=== PATIENT | male | born 1970 | race Caucasian/White ===

== ENCOUNTER 2018-03-29 11:19 | Emergency (ER) ==
[2018-03-29 11:27] VITALS: BP 132/88; TEMP 98.2; BMI 25.0
[2018-03-29] MEDS: TORADOL IM STA ×2 (11:52→12:49)
--- NOTE | 2018-03-29 12:25 | DI ---
EXAM: RIGHT KNEE. HISTORY: Knee pain. FINDINGS: Right knee four view. No comparison. 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 The joint compartments proper are within normal limits. There is no joint effusion or acute fracture. General bone density and soft tissues are wi thin normal limits. 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 Otherwise within normal limits radiographically .
--- NOTE | 2018-03-29 12:45 | CT ---
EXAM: CT lumbar spine without contrast HISTORY: Fall and unable to lay on back, pain COMPARISON: None TECHNIQUE: CT old lumbar spine performed without intravenous contrast. Coronal and sagittal reforma tted images obtained. FINDINGS: For the purposes of this examination, there will be considered five lumbar vertebral amanda s with partial sacralization of L5 and hypoplastic T12 ribs. Vertebral bodies normal height. No fra cture. No subluxation. Small multilevel marginal osteophytes. Intervertebral disc spaces maintaine d. Posterior disc osteophyte complex and facet arthrosis at L3-L4 and L4-L5 cause mild bilateral kimberly ral foraminal narrowing. Central canal grossly patent. No paravertebral soft tissue abnormality. A therosclerosis. . IMPRESSION: 1. No fracture or subluxation. 2. Mild chronic discogenic degenerative disease and facet arthrosis.
--- NOTE | 2018-03-29 12:49 | ED.PDOC ---
General ED Provider: Dr. GNUJAN CAO Chief Complaint: Knee Pain/Injury Stated Complaint: fall right knee pain and low back pain denied neck pain Time Seen by Physician: 11:20 (sustained a fall 1 hr ago denied neck pain ) Mode of Arrival: Wheelchair Information Source: Patient Exam Limitations: No limitations Referred to ED by: Other (pt was examined with napoleon in the room at all times denied other injury/pain) Nursing and Triage Documentation Reviewed and Agree: Yes Does patient meet sepsis criteria?: No If yes, has appropriate treatment been initiated?: No System Inflammatory Response Syndrome: Not Applicable (no neck pain ) Sepsis Protocol: For patient's 13 years and over: Temp is 96.8 and below OR 101 and greater Pulse >90 BPM Resp >20/minute Acutely Altered Mental Status Are patient's symptoms suggestive of a new infection, such as: -Pneumonia -Skin, Soft Tissue -Endocarditis -UTI -Bone, Joint Infection -Implantable Device -Acute Abdominal Infection -Wound Infection -Meningitis -Blood Stream Catheter Infection -Unknown Trauma/Injury Complaint Exam - Trauma Complaint/Exam Location of Pain or Injury: Reports: Back, RLE (knee) Mechanism of Injury: Reports: Fall Onset/Duration: 1 hr ago Symptoms Are: Still present Timing of Treatment: Immediate Initial Severity: Mild Current Severity: Mild Character: Reports: Aching Aggravating: Reports: Movement Alleviating: Reports: Rest Associated Signs and Symptoms: Denies: LOC, Confusion, Memory loss, Lethargy, Vomiting, Bleeding, Bruising, Swelling, Extremity disuse, Painful respiration, Hoarseness, Dysphagia, Hemoptysis, Significant blood loss Penetrating Injury Risk Factors: Reports: None Nexus Low Risk Criteria: No post-midline CS tender, No evidence of intoxicat., No Altered LOC, No focal neuro deficit, No distracting injuries Immobilization Removed Post Exam: No Glascow Coma Scale (see protocol): 15 Trauma Findings: Absent: [place] eyes, Hemotympanum, Nasal deformity, Dental tenderness, Dental injury, Dental malocclusion, Neck tenderness, Neck spasm, SubQ Air, Crepitus, Airway obstructed, Trachea displaced, Labored respirations, Decreased breath sounds, Muffled heart sounds, Weak pulses, Absent pulses, Abdominal distention, Pelvic tenderness, Pelvic instability Skin Findings: Present: Normal findings Differential Diagnoses: Abrasion, Fracture, Sprain, Strain Review of Systems - Review Of Systems Constitutional: Reports: No symptoms Eyes: Reports: No symptoms Ears, Nose, Mouth, Throat: Reports: No symptoms Respiratory: Reports: No symptoms Cardiac: Reports: No symptoms GI: Reports: No symptoms : Reports: No symptoms Musculoskeletal: Reports: Back pain, Joint pain (right knee) Skin: Reports: No symptoms Neurological: Reports: No symptoms Endocrine: Reports: No symptoms Hematologic/Lymphatic: Reports: No symptoms All Other Systems: Reviewed and Negative Past Medical History - Past Medical History Previously Healthy: Yes Endocrine: Reports: None Cardiovascular: Reports: None Respiratory: Reports: None Hematological: Reports: None Gastrointestinal: Reports: None Genitourinary: Reports: None Neuro/Psych: Reports: None Musculoskeletal: Reports: None Cancer: Reports: None - Surgical History General Surgical History: Reports: None - Family History Family History: Reports: None - Social History Smoking Status: Current every day smoker, Heavy tobacco smoker Hx Substance Use: No Alcohol Screening: None Physical Exam - Physical Exam Appearance: Well-appearing, No pain distress, Well-nourished Eyes: MICHELE, EOMI, Conjunctiva clear ENT: Ears normal, Nose normal, Oropharynx normal Respiratory: Airway patent, Breath sounds clear, Breath sounds equal, Respirations nonlabored Cardiovascular: RRR, Pulses normal, No rub, No murmur GI/: Soft, Nontender, No masses, Bowel sounds normal, No Organomegaly Musculoskeletal: Normal strength, ROM intact, No edema, No calf tenderness Skin: Warm, Dry, Normal color Neurological: Sensation intact, Motor intact, Reflexes intact, Cranial nerves intact, Alert, Oriented Psychiatric: Affect appropriate, Mood appropriate Interpretation - Radiology Interpretation Radiology Interpretation By: Radiologist Radiology Results: No acute changes Critical Care Note - Critical Care Note Total Time (mins): 0 Course - Course Orders, Labs, Meds: Orders Category Date Time Status Ketorolac Tromethamine [Toradol] MEDS 03/29/18 11:46 Discontinued 60 mg IM ONCE STA CT LUMBAR SPINE W/O CONTRAST Stat RADS 03/29/18 11:46 Completed KNEE, RIGHT 4 VIEWS Stat RADS 03/29/18 11:46 Completed Medications Discontinued Medications Generic Name Dose Route Start Last Admin Trade Name Freq PRN Reason Stop Dose Admin Ketorolac Tromethamine 60 mg 03/29/18 11:46 03/29/18 11:52 Toradol IM 03/29/18 11:47 Not Given ONCE STA Vital Signs: Temp Pulse Resp BP Pulse Ox 03/29/18 11:20 98.2 F 79 16 132/88 97 Departure - Departure Time of Disposition: 12:50 Disposition: HOME SELF-CARE Discharge Problem: Knee pain, Injury of knee, Lumbar back pain Instructions: Acute Low Back Pain (ED) Condition: Good Pt referred to PMD for follow-up: Yes IPMP verified?: No Additional Instructions: Please call your Family Physician as soon as possible to schedule a follow-up appointment. Prescriptions: Hydrocodone/Acetaminophen [[place] 10-325 Tablet] 1 each PO Q8HR #4 tablet Allergies/Adverse Reactions: Allergies No Known Allergies Allergy (Unverified 03/29/18 11:28) Home Medications: Ambulatory Orders Hydrocodone/Acetaminophen [[place] 10-325 Tablet] 1 each PO Q8HR #4 tablet
== END 2018-03-29 13:15 | disposition home or self-care (01) ==
LOC: EDBD 11:19 → ED 11:19
DX: M25.561 Pain in right knee (principal); M54.5 Low back pain; W19.XXXA Unspecified fall, initial encounter; F17.210 Nicotine dependence, cigarettes, uncomplicated
CPT/HCPCS: 96372; 99283

== ENCOUNTER 2019-01-25 11:56 | Emergency (ER) ==
[2019-01-25 12:08] VITALS: BP 163/97; TEMP 98.7; BMI 25.9
--- NOTE | 2019-01-25 13:37 | CT ---
EXAM: CT of the cervical spine without contrast History: Neck trauma. Technique: Multiplanar CT images through the cervical spine were obtained without the administration of IV contrast Findings: The visualized upper lungs are free of consolidation. The visualized airway remains paten t. No acute fracture or subluxation of the cervical spine. Reversal of the normal cervical lordosis. N o prevertebral soft tissue swelling. Predental space is not widened. Bony spinal canal is not compr omised. Disc space heights are preserved. Impression: No acute osseous abnormality of the cervical spine.
--- NOTE | 2019-01-25 13:39 | CT ---
EXAM: CT of the chest without contrast History: Chest trauma. Technique: Multiplanar CT images through the thorax were obtained without the administration of IV c ontrast Findings: Heart size is normal. No pericardial effusion. Coronary calcifications. No thoracic aor tic aneurysm. No pathologically enlarged thoracic lymph nodes. No consolidation. No pleural fluid and no pneumothorax. No suspicious lung masses or lung nodules. Within the visualized upper abdomen, status post cholecystectomy. Small hypodensity within the right kidney is probably a cyst. No acute osseous abnormalities. Impression: 1. No acute intrathoracic process. 2. Coronary artery disease
--- NOTE | 2019-01-25 13:40 | CT ---
EXAM: CT of the right shoulder without contrast History: Right shoulder trauma. Technique: Multiplanar CT images through the right shoulder were obtained without the administration of IV contrast Findings: No acute fracture or dislocation. Moderate narrowing of the right AC joint and mild narro wing of the right glenohumeral joint with small osteophytes. Impression: No acute fracture
--- NOTE | 2019-01-25 13:42 | CT ---
EXAM: CT thoracic spine without contrast HISTORY: Fall COMPARISON: None TECHNIQUE: CT thoracic spine performed without intravenous contrast. Coronal and sagittal reformatt ed images obtained. FINDINGS: Vertebral bodies normal height. No fracture. No subluxation. Mild multilevel chronic di scogenic degenerative disease with intervertebral disc space narrowing, marginal osteophyte formation . Central canal grossly patent. Please refer to separate report CT chest regarding findings in the chest. IMPRESSION: 1. No fracture or subluxation thoracic spine. 2. Mild chronic discogenic degenerative disease.
--- NOTE | 2019-01-25 14:09 | ED.PDOC ---
General ED Provider: Dr. GUNJAN CAO Chief Complaint: Extremity Pain/Injury Stated Complaint: RIGHT SHOULDER AND UPPER EXT NUMBNESS AFTER A FALL C/O SHOULDER PAIN RIGHT Time Seen by Physician: 12:00 (SEEN WITH BRIAN) Mode of Arrival: Walk-In Information Source: Patient Exam Limitations: No limitations Nursing and Triage Documentation Reviewed and Agree: Yes Does patient meet sepsis criteria?: No System Inflammatory Response Syndrome: Not Applicable Sepsis Protocol: For patient's 13 years and over: Temp is 96.8 and below OR 101 and greater Pulse >90 BPM Resp >20/minute Acutely Altered Mental Status Are patient's symptoms suggestive of a new infection, such as: -Pneumonia -Skin, Soft Tissue -Endocarditis -UTI -Bone, Joint Infection -Implantable Device -Acute Abdominal Infection -Wound Infection -Meningitis -Blood Stream Catheter Infection -Unknown Trauma/Injury Complaint Exam - Trauma Complaint/Exam Location of Pain or Injury: Reports: Neck, RUE, Other (SHOULDER RIGHT) Mechanism of Injury: Reports: Fall Onset/Duration: 2 HOURS AGO Symptoms Are: Still present Initial Severity: Moderate Current Severity: Mild Character: Reports: Aching (NUMBNESS RIGHT UPPER EXT) Aggravating: Reports: Movement (OF THE SHOULDER AND ARM) Alleviating: Reports: Rest Associated Signs and Symptoms: Denies: LOC, Confusion, Memory loss, Lethargy, Vomiting, Bleeding, Bruising, Swelling, Extremity disuse, Painful respiration, Hoarseness, Dysphagia, Hemoptysis, Significant blood loss Related History: Reports: Similar episode Penetrating Injury Risk Factors: Reports: None Related Surgical History: Reports: None Nexus Low Risk Criteria: No post-midline CS tender, No evidence of intoxicat., No Altered LOC, No focal neuro deficit Immobilization Removed Post Exam: No Glascow Coma Scale (see protocol): 15 Compartment Syndrome Risk Factors: Present: Pain, Paresthesias Review of Systems - Review Of Systems Constitutional: Reports: No symptoms Eyes: Reports: No symptoms Ears, Nose, Mouth, Throat: Reports: No symptoms Respiratory: Reports: No symptoms Cardiac: Reports: No symptoms GI: Reports: No symptoms : Reports: No symptoms Musculoskeletal: Reports: Joint pain (RIGHT SHOULDER ) Skin: Reports: No symptoms Neurological: Reports: No symptoms Endocrine: Reports: No symptoms Hematologic/Lymphatic: Reports: No symptoms All Other Systems: Reviewed and Negative Past Medical History - Past Medical History Previously Healthy: Yes Endocrine: Reports: None Cardiovascular: Reports: None Respiratory: Reports: None Hematological: Reports: None Gastrointestinal: Reports: None Genitourinary: Reports: None Neuro/Psych: Reports: None Musculoskeletal: Reports: None Cancer: Reports: None - Surgical History General Surgical History: Reports: None - Family History Family History: Reports: None - Social History Smoking Status: Current every day smoker Hx Substance Use: Yes (Pot not very often) Alcohol Screening: None - Immunizations Tetanus Shot up to Date: Yes Physical Exam - Physical Exam Appearance: Well-appearing, No pain distress, Well-nourished Eyes: MICHELE, EOMI, Conjunctiva clear ENT: Ears normal, Nose normal, Oropharynx normal Respiratory: Airway patent, Breath sounds clear, Breath sounds equal, Respirations nonlabored Cardiovascular: RRR, Pulses normal, No rub, No murmur GI/: Soft, Nontender, No masses, Bowel sounds normal, No Organomegaly Musculoskeletal: Normal strength, ROM intact, No edema, No calf tenderness Skin: Warm, Dry, Normal color Neurological: Sensation intact, Motor intact, Reflexes intact, Cranial nerves intact, Alert, Oriented Psychiatric: Affect appropriate, Mood appropriate Re-Evaluation - Re-Evaluation Time of Re-Evaluation: 14:09 (LEFT AMA . ANGRY ABOUT CARE STATED HE DOES NOT AGREE WITH CARE. I WAS IN THE PROCESS EXPLAINING THAT HE HAS TO OBTAIN [facility].I OF THE C SPINE AND POSSIBLE NERVE CONDUCTION STUDIES . PT ABRUPTLY LEFT . PRESENT CHARISSA MURRELL ) Critical Care Note - Critical Care Note Total Time (mins): 0 Course - Course Orders, Labs, Meds: Orders Category Date Time Status CT CERVICAL SPINE W/O CONTRAST Stat RADS 01/25/19 12:[address] CHEST W/O CONTRAST Stat RADS 01/25/19 12:[address] SHOULDER RIGHT W/O CONTRAST Stat RADS 01/25/19 12:[address] THORACIC SPINE W/O CONTRAST Stat RADS 01/25/19 12:53 Completed Vital Signs: Temp Pulse Resp BP Pulse Ox 01/25/19 11:56 98.7 F 74 16 163/97 H 97 Departure - Departure Time of Disposition: 14:09 Disposition: AMA Discharge Problem: Injury of upper extremity Arm pain Qualifiers: Laterality: right Qualified Code(s): M79.601 - Pain in right arm Condition: Good Pt referred to PMD for follow-up: Yes IPMP verified?: No Allergies/Adverse Reactions: Allergies No Known Allergies Allergy (Unverified 03/29/18 11:28) Home Medications: Ambulatory Orders 1 [No Reported Medications] 01/25/19
== END 2019-01-25 14:06 | disposition left against medical advice (07) ==
LOC: ED 11:56
DX: M79.601 Pain in right arm (principal); M25.511 Pain in right shoulder; M54.2 Cervicalgia; R20.0 Anesthesia of skin; W19.XXXA Unspecified fall, initial encounter; F17.210 Nicotine dependence, cigarettes, uncomplicated
CPT/HCPCS: 99284